=== PATIENT | female | born 1975 | race African-American/Black ===

== ENCOUNTER 2018-05-17 17:09 | Emergency (ER) | payer MEDICAID ==
[~2018-05-17] VITALS: Ht 175.3 cm; Wt 118.0 kg
[2018-05-17 18:11] VITALS: BP 131/74
== END 2018-05-17 23:45 | disposition left against medical advice (07) ==
LOC: ER 20:49
DX: Z53.21 Procedure and treatment not carried out due to patient leaving prior to being seen by health care provider (principal)